=== PATIENT | male | born 1955 | race Caucasian/White ===

== ENCOUNTER → 2023-11-01 09:10 | Outpatient (REF) | payer MEDICARE, OTHER, SELFPAY | LOC: RAD 09:10 | PROVIDERS: ATTENDING PHYSICIAN Internal Medicine | DX: M85.80 Other specified disorders of bone density and structure, unspecified site (principal); M81.0 Age-related osteoporosis without current pathological fracture | CPT/HCPCS: 77080 ==

== ENCOUNTER 2024-01-03 06:24 | Day surgery (SDC) | payer MEDICARE, OTHER, SELFPAY | END 2024-01-03 10:47 | disposition home or self-care (01) | LOC: GI 06:24 | PROVIDERS: ATTENDING PHYSICIAN Internal Medicine | DX: Z12.11 Encounter for screening for malignant neoplasm of colon (principal); K64.8 Other hemorrhoids; K51.00 Ulcerative (chronic) pancolitis without complications; K64.4 Residual hemorrhoidal skin tags; D12.4 Benign neoplasm of descending colon | CPT/HCPCS: 45380; 88305 ==

== ENCOUNTER → 2024-01-16 07:06 | Outpatient (REF) | payer MEDICARE, OTHER, SELFPAY | LOC: RAD 07:06 | PROVIDERS: ATTENDING PHYSICIAN Internal Medicine | DX: E05.90 Thyrotoxicosis, unspecified without thyrotoxic crisis or storm (principal) | CPT/HCPCS: 78014; A9516 ==

== ENCOUNTER → 2024-01-20 10:09 | Outpatient (REF) | payer MEDICARE, OTHER, SELFPAY | LOC: RAD 10:09 | PROVIDERS: ATTENDING PHYSICIAN Internal Medicine | DX: E05.90 Thyrotoxicosis, unspecified without thyrotoxic crisis or storm (principal); E07.89 Other specified disorders of thyroid | CPT/HCPCS: 76536 ==

== ENCOUNTER 2024-05-06 06:24 | Day surgery (SDC) | payer MEDICARE, OTHER, SELFPAY | END 2024-05-06 09:43 | disposition home or self-care (01) | LOC: GI 06:24 | PROVIDERS: ATTENDING PHYSICIAN Internal Medicine | DX: Z12.11 Encounter for screening for malignant neoplasm of colon (principal); K63.89 Other specified diseases of intestine; K62.1 Rectal polyp; K51.00 Ulcerative (chronic) pancolitis without complications; K62.89 Other specified diseases of anus and rectum; Z90.79 Acquired absence of other genital organ(s); Z86.0100 Personal history of colon polyps, unspecified | CPT/HCPCS: 45385; 45380; 45399; 88305 ==

== ENCOUNTER 2024-09-27 17:24 | Emergency (ER) | payer MEDICARE, OTHER, SELFPAY ==
[2024-09-27 17:38] VITALS: BP 155/89
[2024-09-27 21:15] VITALS: BMI 29.0
--- NOTE | 2024-09-27 21:16 | EDRN ---
Pt complains of tightness in his chest - first episode little over 1 week ago. Second episode Saturday night and next episode started last night and has not gone away. Pt with chronic sob due to bronchiectasis, no worse than usual. No abd pain,
n/v/c/d, urinary symptoms, fever/chills/cough.
[2024-09-27 21:31] VITALS: BP 140/78
[2024-09-27 22:12] LABS: Hematocrit 43.5 % (39.0-52.0); Hemoglobin 15.0 g/dL (13.0-18.0); Mean Corp Hgb Conc. 34.5 g/dL (33.0-37.0); Mean Corpuscular Volume 86.1 fL (80.0-94.0); Nucleated Red Blood Cells % 0 % (-); Platelet Count 285 10^3/uL (130-400); Red Cell Dist. Width 13.5 % (11.5-14.5)
[2024-09-27 22:21] LABS: Blood Urea Nitrogen 21 mg/dl (9-20); Calcium 9.7 mg/dl (8.4-10.2); Carbon Dioxide 21 mmol/L (22-30); Chloride 109 mmol/L (98-107); Estimated Creatinine Clearance 106 ml/min; Glucose 88 mg/dl (70-99); Lipase 92 U/L (23-300); Sodium 138 mmol/L (135-145); eGFR > 60.00
[2024-09-27 22:38] LABS: ALT (SGPT) 32 U/L (0-50); AST (SGOT) 32 U/L (17-59); Albumin 4.7 g/dl (3.5-5.0); Alkaline Phosphatase 67 U/L (38-126); Potassium 3.8 mmol/L (3.5-5.1); Total Protein 7.3 g/dl (6.3-8.2)
[2024-09-27 22:41] LABS: Troponin I < 0.012 ng/ml
[2024-09-27 23:00] VITALS: BP 134/88
[2024-09-27 23:21] LABS: C-Reactive Protein 6.10 mg/L (0.0-10.00)
--- NOTE | 2024-09-27 23:58 | ED.GENMED ---
History of Present Illness
General
Chief Complaint: Chest Pain
Time Seen by Provider: 09/27/24 20:19
History of Present Illness
History of Present Illness:
Note:
CHIEF COMPLAINT(S)
Chest tightness and difficulty breathing.
HISTORY OF PRESENT ILLNESS
The patient is a 69-year-old male with a history of bronchiectasis, presenting with a complaint of persistent chest tightness and difficulty breathing, which initially began last Saturday. The patient describes the chest tightness as 'tender'
and sometimes localized. The symptoms improved but returned persistently since last night. The patients symptom severity fluctuates but reports it never completely resolved, noting this episode is more severe than previous ones. Associated symptoms
include an increased heart rate that the patient monitors closely, indicating variations in heart rate during rest and physical activity, such as cycling 22 miles, where it failed to escalate beyond 150 bpm. The patient is not new to these symptoms
but sought medical attention today as the pain persisted. The patient has a heart monitor, indicating heightened awareness and self-monitoring of cardiac status. The patient has been able to carry out activities such as cycling despite these
symptoms.
PAST MEDICAL AND SURGICAL HISTORY
Prostate cancer, reportedly in remission post-radiation in 2019. Ulcerative colitis, also in remission, currently managed with Entyvio.
CHRONIC MEDICAL CONDITIONS SIGNIFICANTLY AFFECTING CARE
Bronchiectasis and ulcerative colitis.
MEDICATIONS
The patient takes Entyvio for ulcerative colitis and previously was prescribed prednisone 20 mg daily for bronchiectasis exacerbations. The patient experienced adverse effects when inadvertently using a 30 mg dose.
PHYSICAL EXAM
General: Alert, no acute distress.
Skin: Warm, dry.
Head: Normocephalic, atraumatic.
Neck: Supple, trachea midline.
Eye Ears, nose, mouth and throat: Oral mucosa moist.
Cardiovascular: Normal peripheral perfusion, No edema.
Respiratory: Respirations are non-labored.
Gastrointestinal: Abdomen nondistended.
Back: Normal range of motion, Normal alignment.
Musculoskeletal: Normal range of motion, normal strength.
Neurological: Alert and oriented to person, place, time, and situation, No focal neurological deficit observed.
Psychiatric: Cooperative, appropriate mood & affect.
PLAN
1. The attending provider plans to order a computed tomography (CT) scan of the chest to rule out pulmonary embolism and assess bronchiectasis.
2. Review of cardiac enzymes indicated initial findings were unremarkable. The review of further blood work was planned.
3. The provider will coordinate with the patient�s family physician, Dr. Gill Hernandes, for follow-up and management.
4. The patient is instructed to continue monitoring symptoms and heart rate closely; further instructions will be provided based on diagnostic outcomes.
DIFFERENTIAL DIAGNOSIS
The Differential Diagnosis includes, in no particular order and is not limited to:
1. Pulmonary embolism
2. Angina pectoris
3. Myocardial infarction
4. Congestive heart failure
5. Pneumonia
6. Chronic obstructive pulmonary disease exacerbation
7. Anxiety disorder
8. Gastroesophageal reflux disease
9. Costochondritis
10. Aortic stenosis
Disposition:
SUMMARY OF ENCOUNTER
The 69-year-old male patient with a history of bronchiectasis presented to the emergency department with complaints of chest tightness and difficulty breathing. The patient has been followed by pulmonology. A CT scan of the chest was conducted to
rule out pulmonary embolism and revealed no acute pulmonary embolism, no thoracic aneurysm, or acute aortic dissection, confirming basilar atelectasis. Laboratory workup including negative troponin levels, BUN of 21, creatinine of 0.6, lipase of 92,
proBNP of 20, and CRP of 6.1 were noted. An EKG on arrival showed normal sinus rhythm at a rate of 90 with normal intervals and no signs of acute ischemia.
DISPOSITION
The patient was discharged in improved condition.
ASSESSMENT
The patient presented with symptoms of chest tightness and difficulty breathing, which were evaluated to rule out serious conditions such as pulmonary embolism and acute aortic dissection.
PLAN
1. The patient is discharged in improved condition.
2. Coordination with the patients primary care physician and automotive project engineer for ongoing management of bronchiectasis and monitoring of symptoms.
INDEPENDENT REVIEW OF LABS AND INTERPRETATION OF TESTS
My independent review of the CT scan of the chest shows no acute pulmonary embolism, no thoracic aneurysm, or acute aortic dissection; findings are consistent with basilar atelectasis.
My independent review of lab results includes:
- Troponin: Negative
- BUN
21
- Creatinine: 0.6
- Lipase: 92
- proBNP: 20
- CRP
6.1
My independent interpretation of the EKG shows a normal sinus rhythm with a rate of 90, normal intervals, and no acute ischemic changes.
MEDICATION RECONCILIATION
The patient confirmed to have prescriptions ready, although specific medications were not detailed in the transcript.
MEDICAL DECISION MAKING
- Number and Complexity of Problems Addressed:
Chronic conditions affecting care include bronchiectasis and ulcerative colitis.
Differential Diagnosis considered:
1. Pulmonary embolism
2. Angina pectoris
3. Myocardial infarction
4. Congestive heart failure
5. Pneumonia
6. Chronic obstructive pulmonary disease exacerbation
7. Anxiety disorder
8. Gastroesophageal reflux disease
9. Costochondritis
10. Aortic stenosis
- Data:
Category 1:
The CT scan was conducted and independently interpreted with findings consistent with basilar atelectasis.
Laboratory tests independently reviewed indicated negative troponin, BUN of 21, creatinine of 0.6, lipase of 92, proBNP of 20, and CRP of 6.1.
- Risk:
Consideration of Admission/Observation: Escalation of care including admission/observation was considered given the complexity and risk of the patients presenting complaint, exam findings, and their underlying comorbidities. However, ultimately I
feel the patient is safe for outpatient management with close follow-up. Reasoning: Work-up is reassuring, does not reveal any acute life/organ-threatening processes, patients symptoms well controlled upon reevaluation, reexamination is reassuring,
vitals are stable, patient agreeable with discharge, reliable for follow-up.
DIAGNOSIS
1. Chest tightness and difficulty breathing - ICD-10: R07.89
2. History of bronchiectasis - ICD-10: J47.9
Past History
Past History
ED Past Medical History: Cancer (Prostate) and Other (Bronchiectasis, BPH, kidney stone)
ED Past Surgical History: Other (Sinus surgery)
Social History
Tobacco: Non-smoker
Alcohol: None
Drug: None
Personal:
Living: with family
Employment: Employed
Family History
Family History: Other
Phy Exam
Physical Exam
Physical Exam:
Physical Exam
Vital signs and allergy list reviewed and agreed with.
GENERAL: Alert , in minimal apparent distress
EYE: pupils equal, EOMI, anicteric
NECK: Supple, no significant adenopathy. No masses. Trachea midline
ENT: Oropharynx is clear, mmm.
CARDIAC: Regular rate and rhythm . No M/R/G
LUNGS: Clear breath sounds bilaterally, no acute respiratory distress, no wheezes/rales/rhonchi. Some expiratory wheezes
ABDOMEN: Soft, without focal tenderness, no r/g, no cvat. Normal BSx4q
NEUROLOGICAL: Alert and oriented, no focal neuro deficits
SKIN: Warm and dry, skin intact.
MUSCULOSKELETAL: No edema, well perfused. Moves all 4 extremities
PSYCH: Normal and appropriate interaction.
Scores
Heart Score for Chest Pain Patients
STEMI patient?: No
History: Slightly or Non-Suspicious
ECG: Normal
Age: >/= 65 years
Risk Factors: 1 or 2 Risk Factors
Troponin: </= Normal Limit
Heart Score for Chest Pain Patients: 3
Heart Score Risk: 2.5% MACE over next 6 weeks
Course
Orders/Labs/Results
Orders:
Orders
09/27/24 17:30
Electrocardiogram (*1) Urgent
Reason for Study: Chest Pain
EKG- Treatment ONCE
09/27/24 21:14
CT Chest PE Study Urgent
Comment:
Reason For Exam: tachy, cp, hx of bronchiectasis
09/27/24 21:40
Basic Metabolic Panel Urgent
Lipase Urgent
09/27/24 21:56
CRP [C-Reactive Protein] Urgent
Complete Blood Count/With Diff Urgent
Erythrocyte Sed Rate Urgent
Comment: ADD ON
Zaswu-Yxpp-Vkndsmn Urgent
NT-proBNP Urgent
Comment: ADD ON
Potassium Urgent
Troponin I Urgent
09/28/24 00:02
Electrocardiogram (*1) Urgent
Reason for Study: Chest Pain
EKG- Treatment ONCE
Abnormal Lab Results
09/27/24
21:40
Chloride 109 H mmol/L
(98-107)
Carbon Dioxide 21 L mmol/L
(22-30)
BUN 21 H mg/dl
(9-20)
Creatinine 0.6 L mg/dL
(0.7-1.3)
09/27/24 21:56
09/27/24 21:56
Vital Signs
Initial and Last Documented VS:
Initial Vital Signs
Temp Pulse Resp BP Pulse Ox
98.4 F 109 18 155/89 99
09/27/24 17:38 09/27/24 17:38 09/27/24 17:38 09/27/24 17:38 09/27/24 17:38
Last Documented Vital Signs
Temp Pulse Resp BP Pulse Ox
98.4 F 86 14 119/85 99
09/27/24 17:38 09/28/24 00:41 09/28/24 00:41 09/28/24 00:41 09/28/24 00:41
*Pulse Oximetry
SaO2: 98
Oxygen Mode of Delivery: Room air
Patient hypoxic: no
*Critical Care Note
Total Time (30-74mins, 75-104mins- exclusive of procedures): Not Applicable
Update Note
Update Note:
NAME: UMA CHOWDHURY
DATE OF EXAM: 09/27/2024
Patient No: [id number]
Physician: MAGY^Enzo
Date of : 1955
Past Medical History (entered by Technologist):
Reason For Exam (entered by Technologist):
Other Notes (entered by Technologist): Pt reports chest tightness since 2099, also had an episode 1 wk ago and Sat night, but this episode has not resolved. Pt has a h/o bronchiectasis but feels a little more SOB than usual.
Prior sent
Additional Information (per Vision Radiologist):
CTA CHEST
IMPRESSION:
1. Adequate technical study. No acute pulmonary embolism.
2. No thoracic aortic aneurysm or acute aortic dissection. Bibasilar atelectasis
Incidentals:
- Calcified coronary atherosclerosis
- No acute osseous abnormality.
- Mild gastric wall thickening may be secondary to decompressed state.
- No thoracic lymphadenopathy or suspicious lymph nodes.
Case finalized on Sep 27 2024 11:43PM ET
Repeat EKG shows normal sinus rhythm rate 88 with normal intervals, normal axis. No evidence of acute ischemia present. When compared with previous there is no obvious interval change noted.
ED Attending Note
-
Portions of this chart may have been created with voice recognition software.� Occasional wrong word or��sound alike� substitutions may have occurred due to the inherent limitations of voice recognition software.
Discharge Plan
Departure
Patient Disposition: Home (Routine Discharge)
Date of Disposition: 09/28/24
Time of Disposition: 00:35
Patient with high blood pressure during this ER visit?: Yes
Condition: Good
Discharge Problem:
Bronchiectasis, Chest pain
Instructions: Bronchiectasis in adults, Chest Pain PCP Follow Up, BLOOD PRESSURE
Prescriptions:
No Action
theophylline 300 MG tablet extended release 12 hr
300 mg PO BID
tamsulosin 0.4 MG capsule
0.4 mg PO BID
noegshbhd-BRK-OK-acetaminophen 295 ML liquid
60 ml PO HSPRN PRN (Reason: cough)
Patient Comments:
'hydrocodone cough syrup' no dosage indicated on paper
folic acid 0.8 MG capsule
0.8 mg PO DAILY
cholecalciferol (vitamin D3) 2,000 UNITS tablet
4,000 units PO DAILY
multivitamin with folic acid [Tab-A-Margarita] 1 TABLET tablet
1 tab PO DAILY
Combivent Respimat 1 PUFF mist
1 puff inhalation Q4HPRN PRN (Reason: sob)
cyclobenzaprine 10 MG tablet
10 mg PO DAILYPRN PRN (Reason: muscle spasms)
ipratropium-albuterol 3 ML solution for nebulization
3 ml inhalation R BID
fluticasone propionate 1 SPRAY spray,suspension
2 spray intranasal BID
sodium chloride [Hyper-Eduardo] 4 ML solution for nebulization
4 ml inhalation R BID
arformoterol 15 mcg/2 mL Solution For Nebulization
2 ml INHALATION BID
Entyvio 300 mg Recon Soln
300 mg IV Q8W
polyethylene glycol 3350 [Miralax] 17 gram Powder In Packet
17 g PO DAILY
azithromycin [Zithromax] 250 mg Tablet
250 mg PO MOWEFR
Lunesta
2 tab PO HS
Patient Comments:
pt does not know mg
Dulera 100-5 mcg/actuation Hfa Aerosol Inhaler
2 puff INHALATION BID PRN (Reason: when not using neb)
mometasone [Nasonex] 50 mcg/actuation Bard,Non-Aerosol
2 spray INTRANASAL HS
Referrals:
[facility] [Provider Group]
UNKNOWN - PT DOES,NOT KNOW [Family Provider]
Activity Restrictions/Additional Instructions:
Thank You for choosing [facility].
It was a pleasure meeting you and taking part in your care. We hope for your continued healing and wellness.
Please read discharge instructions in their entirety. However, they are for general education and may not describe your exact diagnosis at discharge. Information on your ER visit and medical conditions were discussed with you along with appropriate
follow up information...
If indicated, please take your medications as instructed and indicated on discharge paperwork.
Please schedule a follow up appointment as directed. Call to schedule an appointment
Please return to the emergency department with ANY change in, persisting, or worsening of symptoms. If any of your symptoms do not improve, or persist, or become more severe within 6-12 hours, please return to the emergency department for further
care.
Please return to the emergency department if you develop a headache, neck pain/stiffness, fever greater than 100.4F, chest pain, shortness of breath, persistent nausea, vomiting, slurred speech, difficulty walking, numbness/tingling, weakness, signs
of infection or any other symptoms that are worrisome to you.
If you have any questions or concerns please do not hesitate to call the Hospital at or E-mail me directly at [email or web address]
Interventions
Interventions:
*Risk Screen - Suicide Last Done: 09/27/24 17:38
*General Assessment Last Done: 09/27/24 22:02
*Neglect/Abuse Screening Last Done: 09/27/24 17:38
*ED- Fall Risk Assessment Last Done: 09/27/24 22:02
*ED COVID-19 Vaccine History Last Done: 09/27/24 17:38
*Nursing Disposition Last Done: 09/28/24 00:50
ED- Cardiac Assessment Last Done: 09/27/24 22:02
Discharge Date and Time
Discharge Date/Time: 09/28/24 00:50
Print Language: CITIZEN OF [place]
[2024-09-28 00:41] VITALS: BP 119/85
== END 2024-09-28 00:50 | disposition home or self-care (01) ==
LOC: EMR 17:24
PROVIDERS: Emergency Medicine; EMERGENCY PHYSICIAN Student in an Organized Health Care Education/Training Program
DX: J47.9 Bronchiectasis, uncomplicated (principal); I25.10 Atherosclerotic heart disease of native coronary artery without angina pectoris; N40.0 Benign prostatic hyperplasia without lower urinary tract symptoms; K51.90 Ulcerative colitis, unspecified, without complications; Z85.46 Personal history of malignant neoplasm of prostate; Z92.3 Personal history of irradiation
CPT/HCPCS: 99284; 71275; 80048; 80076; 83690; 83880; 84132; 84484; 85025; 85652; 86140; 93005; Q9967

== ENCOUNTER → 2024-10-07 11:57 | Outpatient (REF) | payer MEDICARE, OTHER, SELFPAY | LOC: HWRAD 11:57 | PROVIDERS: ATTENDING PHYSICIAN Nurse Practitioner Family; FAMILY PHYSICIAN Internal Medicine; REFERRING PHYSICIAN Internal Medicine Pulmonary Disease | DX: J47.9 Bronchiectasis, uncomplicated (principal) | CPT/HCPCS: 71250 ==

== ENCOUNTER 2024-10-16 22:29 | Inpatient (IN) | payer MEDICARE, OTHER, SELFPAY ==
[2024-10-16] VITALS (7 sets, daily range): BP systolic 105–144; BP diastolic 80–100; BMI 29.8
[2024-10-16 19:08] LABS: Hematocrit 43.4 % (39.0-52.0); Hemoglobin 15.4 g/dL (13.0-18.0); Mean Corp Hgb Conc. 35.5 g/dL (33.0-37.0); Mean Corpuscular Volume 83.8 fL (80.0-94.0); Nucleated Red Blood Cells % 0 % (-); Platelet Count 255 10^3/uL (130-400); Red Cell Dist. Width 13.2 % (11.5-14.5)
[2024-10-16 19:17] LABS: ALT (SGPT) 36 U/L (0-50); AST (SGOT) 37 U/L (17-59); Albumin 4.7 g/dl (3.5-5.0); Alkaline Phosphatase 63 U/L (38-126); Blood Urea Nitrogen 29 mg/dl (9-20); Calcium 10.6 mg/dl (8.4-10.2); Carbon Dioxide 23 mmol/L (22-30); Chloride 109 mmol/L (98-107); Glucose 114 mg/dl (70-99); Potassium 3.8 mmol/L (3.5-5.1); Sodium 141 mmol/L (135-145); Total Protein 7.1 g/dl (6.3-8.2); eGFR > 60.00
[2024-10-16 19:28] LABS: Troponin I 0.016 ng/ml
[2024-10-16] MEDS: NITROSTAT (SUBLINGUAL) 0.4 MG SL ×3 (20:43→21:30)
--- NOTE | 2024-10-16 20:48 | ED.GENMED ---
History of Present Illness
General
Chief Complaint: Chest Pain
Source: patient
Time Seen by Provider: 10/16/24 20:19
History of Present Illness
History of Present Illness:
69-year-old male with past medical history of bronchiectasis, previous prostate cancer presenting to the emergency department for evaluation of continued chest pain for which she was also seen here in the ER 2 weeks ago with no exact etiology
identified. Patient states the pain has been waxing and waning, today pain was occurring while he was riding his bike on a 27 mile an hour bike ride, notes today it seemed a little bit more intense, radiating across his chest described to be a
tightness sensation. Patient states he does ride his bike fairly regularly without any other complications. He does note abnormal heart rates during this time noting that his heart rate has been mostly elevated although there were a few episodes
where he did have a slower heart. He denies any recent illnesses, fevers, chills, rigors, abdominal pain, nausea or vomiting. Patient has a chronic cough which is secondary to his known bronchiectasis. Based off of record review patient was seen
here 2 weeks ago, had a CTA of his chest which was negative for PE but did show diffuse CAD
Past History
Past History
ED Past Medical History: Cancer (Prostate) and Other (Bronchiectasis, BPH, kidney stone)
ED Past Surgical History: Orthopedic and Other (Sinus surgery)
Social History
Tobacco: Non-smoker
Alcohol: None
Drug: None
Personal:
Living: with family
Employment: Employed
Family History
Family History: Other
Review of Systems
Review of Systems
All Other Systems: ROS reviewed and negative except as documented in HPI and ROS
Phy Exam
Physical Exam
Physical Exam:
GENERAL: Alert , in no apparent distress
HEAD: Normocephalic atraumatic
EYE: conjunctiva clear
NECK: Supple
ENT: o/p clr, mmm.
CARDIAC: Tachycardic rate, regular rhythm, no murmur
LUNGS: Clear breath sounds bilaterally, no acute respiratory distress, no wheezes/rales/rhonchi
NEUROLOGICAL: Alert and oriented
SKIN: Warm and dry, skin intact.
MUSCULOSKELETAL: well perfused.
PSYCH: Normal and appropriate interaction.
Scores
Heart Failure Risk
Heart Failure Risk Score: Not Applicable
Heart Score for Chest Pain Patients
STEMI patient?: No
History: Moderately Suspicious
ECG: Nonspecific Repolarization
Age: >/= 65 years
Risk Factors: >/= 3 Risk Factors or History of CAD
Troponin: </= Normal Limit
Heart Score for Chest Pain Patients: 6
Heart Score Risk: 20.3% MACE over next 6 weeks
Withdrawal Assessment of Alcohol
Withdrawal Assessment Completed?: Not applicable
Course
Orders/Labs/Results
Orders:
Orders
10/16/24 18:41
Electrocardiogram (*1) Urgent
Reason for Study: Chest Pain
EKG- Treatment ONCE
10/16/24 18:55
CMP [Comprehensive Metabolic Panel] Urgent
Complete Blood Count/With Diff Urgent
Troponin I Urgent
10/16/24 20:41
Nitroglycerin Sublingual [Nitrostat (Sublingual)] 0.4 mg SL [id number] PRN
10/16/24 20:45
Aspirin Chewable [Low Strength Aspirin] 324 mg PO NOW STA
10/16/24 21:02
Heparin 4,000 units IV NOW STA
Nursing to Place Non Medication Order As Directed
Physician Order: PTT 6 hours after initial start of Heparin infusion
Above order entered?: Yes
10/16/24 21:15
Heparin 44467 Units/250 ml 25,000 units in 250 ml IV PER PROTOCOL
Weight to be used for heparin protocol in kilograms (kg):: 86.3
Protocol:: Cardiac Tx/Acute Coronary
PTT Goal Range to be used:: PTT 73 to 111 seconds
Order type:: Initial
INITIAL Infusion Dose (UNITS/KG/hr) & then follow protocol:: 12 units/kg/hr
Infusion Dose in UNITS/hr & then follow protocol (UNITS/hr):: 1,000
INFUSION RATE in mL/hr & then follow protocol (mL/hr):: 10
PTT less than or equal to 64 seconds:: Increase rate by 200 units/hr (+ 2 mL/hr)
PTT 64.1 to 72.9 seconds:: Increase rate by 100 units/hr (+ 1 mL/hr)
PTT 73 to 111 seconds:: Target Range. No change in rate.
PTT 111.1 to 130.9 seconds:: Decrease rate by 100 units/hr (- 1 mL/hr)
PTT 131 to 199.9 seconds:: HOLD for 1 hr. Then decrease rate by 200 units/hr (- 2 mL/hr)
PTT greater than or equal to 200 seconds:: HOLD for 2 hrs & Notify Provider. Then decrease by 200 units/hr (-
2 mL/hr)
Lab follow-up:: Each change, PTT q6h until 2 consecutive are therapeutic. Then PTT
daily.
10/16/24 21:29
PTT Urgent
Comment: Obtain baseline before beginning heparin infusion if not already collected
10/16/24 22:11
Admit/Transfer Patient As Directed
Co-Sign Provider:
Level of Care: Inpatient admission
Assign to:: Telemetry
Physician / Group: Rich
Diagnosis: Angina
Reason for Telemetry: Chest Pain syndromes
Date to Stop Telemetry: 10/18/24
Time to Stop Telemetry: 11:00
Reason for Hospitalization: heparin drip
Expected length of stay greater than two midnights?: Yes
ELOS- Estimated Length of Stay in days: 3
I certify the patient meets the requirements for IP care: Yes
PRN Pain Medication Management As Directed
May give lesser potent ordered pain med per pt: Yes
preference::
Protocol:: Medication orders for pain may be administered in a
manner that supports deferring to patient preference
when the pt is:
- Requesting an ordered lesser potent pain medication.
Least to most potent pain medications are defined
as: acetaminophen < NSAID < tramadol < opioids
(morphine, oxycodone, hydromorphone).
- Requesting a lesser dose of the same medication IF
ORDERED.
- Requesting a less intrusive route of administration
if both routes are prescribed by the provider (PO <
IV).
10/16/24 22:17
Code Status As Directed
Resuscitation Status: Full Code
10/16/24 22:20
Hydrocodone Bit/Homatropine [Hycodan Syrup] 5 ml PO NOW STA
10/16/24 23:00
Troponin I Q6H
10/17/24 03:30
PTT Urgent
10/17/24 05:00
Troponin I Q6H
10/18/24 11:00
DC Protocol for Telemetry ONCE
Abnormal Lab Results
10/16/24 10/16/24
18:55 21:29
WBC 11.8 H 10^3/uL
(4.8-10.8)
MPV 10.5 H fL
(7.4-10.4)
Absolute Neuts (auto) 9.2 H 10^3/uL
(1.4-6.5)
Absolute Monos (auto) 0.9 H 10^3/uL
(0.1-0.6)
Neutrophils % 77.8 H %
(42.2-75.2)
Lymphocytes % 13.7 L %
(20.5-51.1)
APTT 22.4 L Sec
(23.4-35.0)
Chloride 109 H mmol/L
(98-107)
BUN 29 H mg/dl
(9-20)
Glucose 114 H mg/dl
(70-99)
Calcium 10.6 H mg/dl
(8.4-10.2)
10/16/24 18:55
10/16/24 18:55
Vital Signs
Initial and Last Documented VS:
Initial Vital Signs
Temp Pulse Resp BP Pulse Ox
98.1 F 124 18 142/100 98
10/16/24 18:42 10/16/24 18:42 10/16/24 18:42 10/16/24 18:42 10/16/24 18:42
Last Documented Vital Signs
Temp Pulse Resp BP Pulse Ox
98.1 F 108 22 110/80 95
10/16/24 18:42 10/16/24 22:00 10/16/24 22:00 10/16/24 22:00 10/16/24 22:00
MDM/Problems Addressed
Differential Diagnosis Includes:
Stable angina
Unstable angina
NSTEMI
Concern for PE is minimal given negative CTA 2 weeks ago
Valvular dysfunction
Myocarditis
Pericarditis
Cardiomyopathy
Muscular chest wall pain
Cardiac Arrhythmia
MDM/Problems Addressed:
69-year-old male presenting to the emergency department for evaluation of intermittent chest pain over the last 2 weeks, seen in this ER 2 weeks ago with a relatively unremarkable emergent workup but his CTA did show diffuse CAD. Patient presents
tachycardic up to high as 124 bpm. Given his recent chest imaging will hold off on this at present time. Will treat symptoms with 324 mg of aspirin as well as sublingual nitroglycerin and reassess. Will consult with cardiology to help with
disposition planning
Chronic conditions affecting care: Other (Bronchiectasis)
*Pulse Oximetry
SaO2: 98
Patient hypoxic: no
*EKG
Heart Rate: 119
Rate: tachycardiac
Rhythm: sinus
[place]: normal axis
Ischemia: other (T wave inversions inferior leads)
*Water Quality Specialist Interpretation
Rate: tachycardiac
Heart Rate: 122
Rhythm: sinus
*Critical Care Note
Total Time (30-74mins, 75-104mins- exclusive of procedures): 30
comment:
Critical care statement: A total of 30 minutes of critical care time was provided for this patient. This includes management of unstable vital signs, evaluation of the patient at bedside, reviewing the patient's pertinent medical records, discussion
with consultants, review of old EKGs and review of pertinent medical records. This time with separate from time utilized to perform the aforementioned documented procedures
Patient Management
Discussion with other providers: Hospitalist and Medical Donation Professional
Escalation/DeEscalation of care consider admission/obs:
Case discussed with cardiology, given patients pain improved with SL nitro, they want heparin initiated. Nitro gtt if patient remains with chest pain. They will see in consult. Hospitalist team accepts for admission
ED Attending Note
-
Portions of this chart may have been created with voice recognition software.� Occasional wrong word or��sound alike� substitutions may have occurred due to the inherent limitations of voice recognition software.
Discharge Plan
Departure
Patient Disposition: Admit
Date of Disposition: 10/16/24
Time of Disposition: 21:11
Presentation/result/management discussed w/ accepting MD/DO: Hospitalist
Discharge Problem:
Angina pectoris
Prescriptions:
No Action
theophylline 300 MG tablet extended release 12 hr
300 mg PO BID
tamsulosin 0.4 MG capsule
0.4 mg PO BID
cholecalciferol (vitamin D3) 2,000 UNITS tablet
2,000 units PO DAILY
multivitamin with folic acid [Tab-A-Margarita] 1 TABLET tablet
1 tab PO DAILY
Combivent Respimat 1 PUFF mist
1 puff inhalation Q4HPRN PRN (Reason: sob)
cyclobenzaprine 10 MG tablet
10 mg PO DAILYPRN PRN (Reason: muscle spasms)
ipratropium-albuterol 3 ML solution for nebulization
3 ml inhalation R BID
fluticasone propionate 1 SPRAY spray,suspension
1 spray intranasal DAILY
arformoterol 15 mcg/2 mL Solution For Nebulization
2 ml INHALATION BID
Entyvio 300 mg Recon Soln
300 mg IV Q8W
polyethylene glycol 3350 [Miralax] 17 gram Powder In Packet
17 g PO BID
azithromycin [Zithromax] 250 mg Tablet
250 mg PO MOWEFR
Dulera 100-5 mcg/actuation Hfa Aerosol Inhaler
2 puff INHALATION BID PRN (Reason: when not using neb)
fexofenadine 180 mg Tablet
180 mg PO DAILY
budesonide 0.5 mg/2 mL Suspension For Nebulization
0.5 mg INHALATION BID
folic acid 1 mg Tablet
1 mg PO DAILY
eszopiclone [Lunesta] 2 mg Tablet
2 mg PO HS
sodium chloride 7 % Solution For Nebulization
4 ml INHALATION BID
lidocaine 5 % Ointment
1 applic TOPICAL BID PRN (Reason: Pain)
Yupelri 175 mcg/3 mL Solution For Nebulization
175 mcg INHALATION DAILY
fluticasone propionate 220 mcg/actuation HFA aerosol inhaler
2 puff INHALATION Q12H
hydrocodone-homatropine [Hycodan] 5-1.5 mg/5 mL (5 mL) Solution
5 ml PO DAILYPRN PRN (Reason: Cough)
Referrals:
Gill Gregorio MD [Family Provider, Internal Medicine]
Interventions
Interventions:
*Risk Screen - Suicide Last Done: 10/16/24 20:30
*General Assessment Last Done: 10/16/24 20:30
*Neglect/Abuse Screening Last Done: 10/16/24 20:30
*ED- Fall Risk Assessment Last Done: 10/16/24 20:30
*ED COVID-19 Vaccine History Last Done: 10/16/24 20:30
ED- Cardiac Assessment Last Done: 10/16/24 20:30
Discharge Date and Time
Print Language: VINCENTIAN
[2024-10-16] MEDS: LOW STRENGTH ASPIRIN 324 MG PO (20:49)
--- NOTE | 2024-10-16 21:23 | HPS.HSE ---
Addendum entered and electronically signed by Abdoul Villanueva DO 10/16/24 22:42:
Patient seen and examined independently. Agree with findings and plan as set forth by Brenna Rueda PA-C.
Patient is a 69y M with PMH significant for asthma / bronchiectasis and ulcerative colitis who presents to ED complaining of several weeks of intermittent chest discomfort. Patient notes that he went on a 27 mile bicycle ride today. He had
elevated heart rates that did not improve as usual with rest. He noted chest discomfort mostly in the L chest with exertion that seemed more severe than it had over the past several weeks.
Patient denies any associated symptoms such as N/V, diaphoresis, etc.
Ass:
Chest Pain
Asthma / Bronchiectasis
Ulcerative Colitis
Plan:
Admit for further evaluation and treatment.
IV heparin infusion started in the ED per Cardiology recommendation.
Cardiology consulted for additional recommendations / possible ischemic evaluation.
Follow for any new / recurrent pain.
NTG PRN. Daily ASA, etc.
Follow serial troponin to peak.
Continue usual inhaled medication regimen - patient to bring non-formulary items from home for use during stay.
Original Note:
Family Physician
-
Family Physician: Gill Gregorio
Chief Complaint
-
Chest Pain
History of Present Illness
Patient is a 69 y/o male past medical history of bronchiectasis, and ulcerative colitis who presents with chest pain. Patient reports intermittent chest pain over the past few weeks. He was seen here at the [facility] emergency department
for chest pain on September 25 at which time his troponin was negative and he had a chest CT that was negative for pulmonary embolism and he was discharged home. Patient reports today during his 27 mile bike ride chest pain became more intense. He
described the pain as an intense tightness on the left side of his chest. He also reports during his ride his heart rate was higher than normal and did not recover as quickly. He reports chronic shortness of breath which overall is stable.
Medical History
Past Medical History
Past Medical History: Reports Other
Additional Past Medical History:
Bronchiectasis
Ulcerative Colitis
Prostate Cancer s/p Radiation
Past Surgical History: Reports Other
Additional Past Surgical History:
Knee Surgeries
Hernia Repair
Carpal Tunnel
Pilonidal Cyst
Bilateral Rotator Cuff
Sinus Surgery
Social History
Tobacco: Former Smoker (Quit many years ago)
Alcohol: Occasional (3-5 times per week)
Family History
Family History: Not pertinent
Allergies / Home Medications
Allergies reflects when Allergies were last updated in [employer].
Home Medications with original date entered in [employer]
Allergy/Medication List:
Allergies
Allergy/AdvReac Type Severity Reaction Status Date / Time
cephalexin Allergy Hives Verified 09/27/24 17:44
cat gut sutures Allergy incision Uncoded 09/27/24 17:44
splits open
chromic sutures Allergy incision Uncoded 09/27/24 17:44
splits open
pollen, molds, cats Allergy hay fever Uncoded 09/27/24 17:44
symptoms
Home Medications
cholecalciferol (vitamin D3) 50 mcg (2,000 unit) tablet 2,000 units PO DAILY Supplement 12/04/15
ipratropium 20 mcg-albuterol 100 mcg/actuation mist for inhalation (Combivent Respimat) 1 puff inhalation Q4HPRN PRN sob 12/04/15
multivitamin with folic acid 400 mcg tablet (Tab-A-Margarita) 1 tab PO DAILY Supplement 12/04/15
tamsulosin 0.4 mg capsule 0.4 mg PO BID Urinary issue 12/04/15
theophylline 300 mg tablet,extended release,12 hr 300 mg PO BID Lung/breathing issues 12/04/15
cyclobenzaprine 10 mg tablet 10 mg PO DAILYPRN PRN muscle spasms 12/24/19
fluticasone propionate 50 mcg/actuation nasal spray,suspension 1 spray intranasal DAILY Allergies 12/24/19
ipratropium 0.5 mg-albuterol 3 mg (2.5 mg base)/3 mL nebulization soln 3 ml inhalation R BID Lung/breathing issues 12/24/19
arformoterol 15 mcg/2 mL solution for nebulization 2 ml inhalation BID 12/19/22
vedolizumab 300 mg intravenous solution (Entyvio) 300 mg IV Q8W 12/19/22
azithromycin 250 mg tablet (Zithromax) 250 mg PO MOWEFR 09/27/24
mometasone-formoterol HFA 100 mcg-5 mcg/actuation aerosol inhaler (Dulera) 2 puff inhalation BID PRN when not using neb 09/27/24
polyethylene glycol 3350 17 gram oral powder packet (Miralax) 17 g PO BID 09/27/24
budesonide 0.5 mg/2 mL suspension for nebulization 0.5 mg inhalation BID 10/16/24
eszopiclone 2 mg tablet (Lunesta) 2 mg PO HS 10/16/24
fexofenadine 180 mg tablet 180 mg PO DAILY 10/16/24
fluticasone propionate 220 mcg/actuation HFA aerosol inhaler 2 puff inhalation Q12H 10/16/24
folic acid 1 mg tablet 1 mg PO DAILY 10/16/24
hydrocodone-homatropine 5 mg-1.5 mg/5 mL (5 mL) oral solution (Hycodan) 5 ml PO DAILYPRN PRN Cough 10/16/24
lidocaine 5 % topical ointment 1 applic topical BID PRN Pain 10/16/24
revefenacin 175 mcg/3 mL solution for nebulization (Yupelri) 175 mcg inhalation DAILY 10/16/24
sodium chloride 7 % for nebulization 4 ml inhalation BID 10/16/24
Review of Systems
-
A 12 point ROS was completed and negative except as noted: Yes
Constitutional: Denies Fever
Respiratory: Reports Cough (Chronic) and Trouble Breathing (Chronic)
Cardiac: Reports See HPI
Physical Exam
Vital Signs
Vital Signs
Temp Pulse Resp BP Pulse Ox
98.1 F 126 30 144/99 96
10/16/24 18:42 10/16/24 20:50 10/16/24 20:50 10/16/24 20:57 10/16/24 20:53
Physical Exam
General: Comfortable and Conversant
HEENT: Anicteric and Moist mucous membranes
Respiratory: Clear and Non Labored Respirations
Cardiac: S1/S2, Regular Rhythm and Tachycardia
GI: Soft and Non Tender
Musculoskeletal: No Clubbing and No Cyanosis
Skin: Warm and Dry
Neuro: Awake, Alert, Oriented and Nonfocal/grossly intact
Psych: Calm
Laboratory Results
-
10/16/24 18:55
10/16/24 18:55
Laboratory Results
Total Bilirubin 0.6 mg/dl (0.2-1.3) 10/16/24 18:55
AST 37 U/L (17-59) 10/16/24 18:55
ALT 36 U/L (0-50) 10/16/24 18:55
Alkaline Phosphatase 63 U/L (38-126) 10/16/24 18:55
Troponin I 0.016 ng/ml 10/16/24 18:55
Data Reviewed
-
Lab Data: Labs Reviewed by me
Impression/Plan
-
Chest Pain / Unstable Angina
-Consult Cardiology
-Continue heparin drip
-Continue aspirin
-Continue nitro SL PRN
-Trend Troponin
-Check Lipid Panel and HgbA1c
Bronchiectasis / Asthma
-Continue home nebulizer regimen
-Continue theophylline
Ulcerative Colitis
-Patient maintained on Entyvio as outpatient
Prostate Cancer s/p Radiation
-Continue tamsulosin
DVT proph: Heparin drip
Code Status: Full Code
[2024-10-16] MEDS: HEPARIN 4000 UNITS IV (21:35)
[2024-10-16] MEDS: HEPARIN 25000 UNITS/250 ML IV (21:37)
[2024-10-16 21:56] LABS: APTT 22.4 Sec (23.4-35.0)
[2024-10-16] MEDS: HYCODAN SYRUP 5 ML PO (22:39)
[2024-10-16 23:33] LABS: Troponin I 0.023 ng/ml
[2024-10-16] MEDS: ZITHROMAX PO (23:50)
[2024-10-17] VITALS (7 sets, daily range): BP systolic 118–155; BP diastolic 70–97; BMI 28.9
--- NOTE | 2024-10-17 01:20 | PTCARENOTE ---
recieved pt from ED. Pt ambulated from stretcher to bed. no c/o pain VSSS, pt oriented to unit and call [place] with reach pt care ongoing
[2024-10-17 03:58] LABS: APTT 60.7 Sec (23.4-35.0)
[2024-10-17] MEDS: NON-FORMULARY ITEM 2 ML INH ×2 (07:45→20:01)
[2024-10-17] MEDS: NON-FORMULARY ITEM 175 MCG INH (07:45)
[2024-10-17] MEDS: PULMICORT 0.5 MG INH ×2 (07:49→20:02)
[2024-10-17] MEDS: DUONEB 3 ML INH ×2 (07:49→20:02)
[2024-10-17 08:14] LABS: Hematocrit 39.2 % (39.0-52.0); Hemoglobin 14.0 g/dL (13.0-18.0); Mean Corp Hgb Conc. 35.7 g/dL (33.0-37.0); Mean Corpuscular Volume 85.2 fL (80.0-94.0); Platelet Count 242 10^3/uL (130-400); Red Cell Dist. Width 13.2 % (11.5-14.5)
--- NOTE | 2024-10-17 08:30 | CON.CAR ---
Addendum entered and electronically signed by Georgi Guzman MD 10/17/24 12:04:
I saw and evaluated the patient, and I provided the substantive portion of the medical decision making.
I reviewed and agree with the note by Francine Schulte and it accurately reflects our care.
I personally performed the medical decision making of the this encounter and my assessment and plan is below:
69-year-old gentleman with a past medical history of bronchiectasis/asthma followed by Dr. Perdue, ulcerative colitis, presented for evaluation of chest pain. This began while on his typical 27 mile bike ride yesterday. He could not really
describe it other than saying it is on the left side and felt as though he should seek care. It did not resolve until he received multiple nitroglycerin in the ED. Of note, he has multiple complaints of varying types of chest pain and shortness of
breath over the last 2 weeks and was seen in the emergency room 2 weeks ago at which point he had a relatively normal CTA. Troponin at that time was normal. He gets bouts of short chest pain and shortness of breath at rest that are always improved
with exertion, but yesterday his chest pain was different. Currently he is feeling improved.
On exam, he has a regular rate and rhythm with a normal S1-S2 no murmur rubs or gallops were appreciated lungs had diffuse expiratory wheezing (chronic). No lower extremity edema.
Labs concerning for troponin of 0.016 then 0.023 then 0.013. Admission EKG showed sinus tachycardia with T wave inversion inferiorly.
Impression:
Chest pain: Concerning for unstable angina given slightly abnormal troponin and description. It only resolved after nitroglycerin. Will treat with aspirin, heparin and statin. Will arrange for cardiac catheterization on Saturday or sooner should it
become clinically necessary. Keep n.p.o. after midnight tomorrow. Will start ARTHUR inhibitor and hold off on beta-ernie given wheezes. Check echo
Hypertension: Has been higher at home he reports, will start low-dose ARTHUR inhibitor.
Bronchiectasis/asthma, chronic: Unclear if this is contributing to symptoms. Make explain some but not all. Care per medicine.
Shortness of breath: Intermittent at times mostly at rest he does have an associated throat burning would recommend PPI trial.
Will follow.
Original Note:
Consultation
Consultation Request
Date/Time Consultation Requested: 10/16/24 10:50p
Date/Time Consultation Performed: 10/17/24 8:30a
Requesting Provider: Brenna Rueda PA-C
Performing Provider: HANH Barclay for Dr. Guzman
Reason for Consultation: chest pain
Medical History
-
Chief Complaint: chest pain
History of Present Illness:
Mr. Powell is a 69 yo male with bronchiectasis/asthma since [address] Perdue, ulcerative colitis followed by Dr. Wood, and prior prostate cancer, who presents to the ER with c/o chest pain while riding his bike. Admits to intermittent
chest pain for a couple weeks, this was worse. Initial troponin 0.016, then 0.023, EKG showed sinus tachycardia 119 bpm, T wave abnormality inferior. He was admitted to the hospitalist service and started on IV Heparin drip. NTG given in the ER
with improvement of pain. Currently denies chest pain.
Past Medical History
Past Medical History: Other (as above)
Past Surgical History: Orthopedic (b/l knees, right rotator cuff), Urological (left ureteroscopy/laser litho and stent 12/2019) and Other (left cataract, SCC left calf)
Social History
Tobacco: Former Smoker
Alcohol: Occasional
Personal:
Living: With Family
Family History
Family History: Reviewed & Not Pertinent
Allergies / Home Medications
Allergy/AdvReac Type Severity Reaction Status Date / Time
cephalexin Allergy Hives Verified 09/27/24 17:44
cat gut sutures Allergy incision Uncoded 09/27/24 17:44
splits open
chromic sutures Allergy incision Uncoded 09/27/24 17:44
splits open
pollen, molds, cats Allergy hay fever Uncoded 09/27/24 17:44
symptoms
�Medication �Instructions �Recorded �Confirmed �Type
cholecalciferol (vitamin D3) 50 2,000 units PO DAILY Supplement 12/04/15 10/16/24 History
mcg (2,000 unit) tablet
ipratropium 20 mcg-albuterol 100 1 puff inhalation Q4HPRN PRN sob 12/04/15 10/16/24 History
mcg/actuation mist for inhalation
(Combivent Respimat)
multivitamin with folic acid 400 1 tab PO DAILY Supplement 12/04/15 10/16/24 History
mcg tablet (Tab-A-Margarita)
tamsulosin 0.4 mg capsule 0.4 mg PO BID Urinary issue 12/04/15 10/16/24 History
theophylline 300 mg 300 mg PO BID Lung/breathing issues 12/04/15 10/16/24 History
tablet,extended release,12 hr
cyclobenzaprine 10 mg tablet 10 mg PO DAILYPRN PRN muscle spasms 12/24/19 10/16/24 History
fluticasone propionate 50 1 spray intranasal DAILY Allergies 12/24/19 10/16/24 History
mcg/actuation nasal
spray,suspension
ipratropium 0.5 mg-albuterol 3 mg 3 ml inhalation R BID 12/24/19 10/16/24 History
(2.5 mg base)/3 mL nebulization Lung/breathing issues
soln
arformoterol 15 mcg/2 mL solution 2 ml inhalation BID 12/19/22 10/16/24 History
for nebulization
vedolizumab 300 mg intravenous 300 mg IV Q8W 12/19/22 10/16/24 History
solution (Entyvio)
azithromycin 250 mg tablet 250 mg PO MOWEFR 09/27/24 10/16/24 History
(Zithromax)
mometasone-formoterol HFA 100 2 puff inhalation BID PRN when not 09/27/24 10/16/24 History
mcg-5 mcg/actuation aerosol using neb
inhaler (Dulera)
polyethylene glycol 3350 17 gram 17 g PO BID 09/27/24 10/16/24 History
oral powder packet (Miralax)
budesonide 0.5 mg/2 mL suspension 0.5 mg inhalation BID 10/16/24 10/16/24 History
for nebulization
eszopiclone 2 mg tablet (Lunesta) 2 mg PO HS 10/16/24 10/16/24 History
fexofenadine 180 mg tablet 180 mg PO DAILY 10/16/24 10/16/24 History
fluticasone propionate 220 2 puff inhalation Q12H 10/16/24 10/16/24 History
mcg/actuation HFA aerosol inhaler
folic acid 1 mg tablet 1 mg PO DAILY 10/16/24 10/16/24 History
hydrocodone-homatropine 5 mg-1.5 5 ml PO DAILYPRN PRN Cough 10/16/24 10/16/24 History
mg/5 mL (5 mL) oral solution
(Hycodan)
lidocaine 5 % topical ointment 1 applic topical BID PRN Pain 10/16/24 10/16/24 History
revefenacin 175 mcg/3 mL solution 175 mcg inhalation DAILY 10/16/24 10/16/24 History
for nebulization (Yupelri)
sodium chloride 7 % for 4 ml inhalation BID 10/16/24 10/16/24 History
nebulization
Verrustat 1 ml topical 1XD warts 10/17/24 10/17/24 History
fluorouracil 0.5 % topical cream 1 applic topical DAILY 10/17/24 10/17/24 History
Review of Systems
-
History Source: Patient
All other systems: Negative unless noted
Physical Exam
Vital Signs
Temp Pulse Resp BP Pulse Ox
97.9 F 88 16 155/83 97
10/17/24 07:50 10/17/24 07:50 10/17/24 07:50 10/17/24 07:50 10/17/24 07:50
Lab Results
10/17/24 06:47
Troponin I 0.023 ng/ml D 10/16/24 22:36
Impression / Plan
-
ACS - intermittent chest pain for 2 weeks, now worse while riding his bike.
- trend troponin to peak, 0.016, 0.023.
- EKG with abn T wave inferior, ST 119 bpm, check EKG now with improved rates.
- IV Heparin, ASA 81mg daily.
- check lipids today. (07/2023 LDL 151, TC 222, TG 72, HDL 58, ASCVD 10 yr risk 14.1%).
- plan for [facility] Saturday10/19/24, NPO after midnight.
Sinus tachycardia - improved rates.
- check EKG in NSR.
Asthma/bronchiectasis - chronic.
- managed by Dr. Perdue as an outpatient.
Ulcerative colitis - stable on meds.
- managed by Dr. Wood as an outpatient.
Prostate cancer - s/p brachytherapy.
- continue Flomax.
Data Reviewed
-
EKG: Tracing Personally Visualized and interpreted (sinus tachycardia 119 bpm, T wave abnormality inferior.)
Medical Tests (Nuc Med, Echo etc): Report Reviewed by me (echo 07/2022: EF 70-75%, normal RV, no valve disease.)
Labs: Labs Reviewed by me
Old Records: Reviewed
[2024-10-17 08:42] LABS: Troponin I 0.013 ng/ml
[2024-10-17] MEDS: ASPIR LOW (ENTERIC COATED) 81 MG PO (08:47)
[2024-10-17] MEDS: THERAGRAN 1 TABLET PO (08:47)
[2024-10-17] MEDS: FLOMAX 0.4 MG PO ×2 (08:47→20:54)
[2024-10-17] MEDS: MIRALAX 17 GRAMS PO ×2 (08:47→20:52)
[2024-10-17] MEDS: FOLVITE 1 MG PO (08:47)
[2024-10-17] MEDS: CLARITIN 10 MG PO (08:47)
[2024-10-17 09:08] LABS: Blood Urea Nitrogen 19 mg/dl (9-20); Calcium 9.2 mg/dl (8.4-10.2); Carbon Dioxide 24 mmol/L (22-30); Chloride 108 mmol/L (98-107); Estimated Creatinine Clearance 106 ml/min; Glucose 94 mg/dl (70-99); HDL Cholesterol 66 mg/dl; LDL Cholesterol, Calculated 100 mg/dl; Potassium 3.7 mmol/L (3.5-5.1); Sodium 140 mmol/L (135-145); Very Low Density Lipoprotein 10 mg/dl (0-30); eGFR > 60.00
[2024-10-17] MEDS: THEO DUR 300 MG PO ×2 (09:13→20:54)
[2024-10-17 11:03] LABS: APTT 75.8 Sec (23.4-35.0)
[2024-10-17 12:12] LABS: Glycohemoglobin (HgbA1c) 5.9 % (4.0-5.6)
[2024-10-17] MEDS: PROTONIX 40 MG PO (12:16)
--- NOTE | 2024-10-17 14:26 | W.PN.HOSP.TC ---
Today's Communication/Plan
-
for [facility] on sat
start pantoprazole
heparin/anti-plt per cards
Assessment / Plan
Assessment / Plan
Chest Pain / Unstable Angina
- EKG reviewed and no ST segment changes
-Troponin follow-up set remains negative
-Currently on aspirin/heparin drip
-Cardiology evaluated and planning to do an heart catheterization on Saturday
-Possible reflux symptom aggravating compounding presentation. Trial of PPI
Bronchiectasis / Asthma
-No signs of flareup
-Continue home nebulizer regimen
-Continue theophylline
Ulcerative Colitis
-Patient maintained on Entyvio as outpatient
Prostate Cancer s/p Radiation
-Continue tamsulosin
Insomnia -on Ambien
DVT proph: Heparin drip
Code Status: Full Code
Total time spent : 55 mins
Discussed with cards
Anticipated Discharge: 24 - 48 hours
Subjective/Interval History
-
Date of Service: October 17, 2024
Denies of having any further chest pain
Has some reflux symptoms
No overt dyspnea
Objective Data
-
Labs:
Laboratory Results
10/17/24 10/17/24 10/17/24
03:27 06:47 10:37
WBC 6.8
Hgb 14.0
Hct 39.2
Plt Count 242
APTT 60.7 H 75.8 H
Sodium 140
Potassium 3.7
Chloride 108 H
Carbon Dioxide 24
BUN 19
Creatinine 0.6 L
Glucose 94
Calcium 9.2
10/17/24
16:30
WBC
Hgb
Hct
Plt Count
APTT Pending
Sodium
Potassium
Chloride
Carbon Dioxide
BUN
Creatinine
Glucose
Calcium
Vital Signs:
Vital Signs
Temp Pulse Resp BP Pulse Ox
97.8 F 98 16 150/85 96
10/17/24 11:04 10/17/24 11:04 10/17/24 11:04 10/17/24 11:04 10/17/24 11:04
Review of Systems
-
Respiratory: Reports No Symptoms
Cardiac: Reports No Symptoms
Abdomen/GI: Reports No Symptoms
Physical Exam
-
General: No Apparent Distress and Comfortable
HEENT: Negative Oxygen
Respiratory: Clear to Auscultation
Cardiac: Regular Rhythm and S1/S2; Negative Murmur or Rub
Musculoskeletal: No Edema
Neuro: Awake, Alert, Oriented, No Motor Deficits and Nonfocal/Grossly Intact
Psych: Calm
[2024-10-17 16:48] LABS: APTT 76.1 Sec (23.4-35.0)
[2024-10-17] MEDS: HYCODAN SYRUP 5 ML PO (17:03)
[2024-10-17] MEDS: HEPARIN 25000 UNITS/250 ML IV (19:21)
[2024-10-18] MEDS: FLEXERIL 10 MG PO (01:08)
[2024-10-18 02:45] VITALS: BP 147/87
[2024-10-18 05:54] LABS: Hematocrit 40.3 % (39.0-52.0); Hemoglobin 14.2 g/dL (13.0-18.0); Mean Corp Hgb Conc. 35.2 g/dL (33.0-37.0); Mean Corpuscular Volume 85.4 fL (80.0-94.0); Platelet Count 246 10^3/uL (130-400); Red Cell Dist. Width 13.2 % (11.5-14.5)
[2024-10-18 06:03] LABS: APTT 71.8 Sec (23.4-35.0)
[2024-10-18 06:23] LABS: Blood Urea Nitrogen 12 mg/dl (9-20); Calcium 9.5 mg/dl (8.4-10.2); Carbon Dioxide 24 mmol/L (22-30); Chloride 111 mmol/L (98-107); Estimated Creatinine Clearance 106 ml/min; Glucose 97 mg/dl (70-99); Potassium 3.9 mmol/L (3.5-5.1); Sodium 138 mmol/L (135-145); eGFR > 60.00
[2024-10-18] MEDS: NON-FORMULARY ITEM 175 MCG INH (07:28)
[2024-10-18] MEDS: PULMICORT 0.5 MG INH ×2 (07:28→20:44)
[2024-10-18] MEDS: NON-FORMULARY ITEM 2 ML INH ×2 (07:28→20:44)
[2024-10-18] MEDS: DUONEB 3 ML INH ×2 (07:28→20:44)
[2024-10-18 07:30] VITALS: BP 130/69
[2024-10-18] MEDS: THERAGRAN 1 TABLET PO (08:33)
[2024-10-18] MEDS: FLOMAX 0.4 MG PO ×2 (08:33→21:08)
[2024-10-18] MEDS: CLARITIN 10 MG PO (08:33)
[2024-10-18] MEDS: FOLVITE 1 MG PO (08:33)
[2024-10-18] MEDS: ASPIR LOW (ENTERIC COATED) 81 MG PO (08:33)
[2024-10-18] MEDS: THEO DUR 300 MG PO ×2 (08:33→21:08)
[2024-10-18] MEDS: MIRALAX 17 GRAMS PO ×2 (08:33→21:08)
[2024-10-18] MEDS: PROTONIX 40 MG PO (08:33)
--- NOTE | 2024-10-18 10:37 | W.PN.CD ---
Today's Communication / Plan
-
continue heparin gtt with intensive monitoring
npo p mn for cath in am
Impression / Plan
-
ACS - intermittent chest pain for 2 weeks, now worse while riding his bike c/f UA
- troponin to peak, 0.023.
- EKG with abn T wave inferior, ST 119 bpm, check EKG now with improved rates.
- IV Heparin, ASA 81mg daily.
-LDL is 100 will recommend statin pending results of [facility]
- plan for [facility] Saturday10/19/24, NPO after midnight.
CP/SOB: multiple differing descriptions
-given chronic intermittent steroid use and 'throat burning'
-trial ppi
Sinus tachycardia - improved rates.
-continue tele
Asthma/bronchiectasis - chronic.
- managed by Dr. Perdue as an outpatient.
Ulcerative colitis - stable on meds.
- managed by Dr. Wood as an outpatient.
Prostate cancer - s/p brachytherapy.
- continue Flomax.
Physical Exam
Vital Signs/Labs
Vital Signs
Temp Pulse Resp BP Pulse Ox
97.5 F 86 18 130/69 97
10/18/24 07:30 10/18/24 07:30 10/18/24 07:30 10/18/24 07:30 10/18/24 10:27
10/17/24 10/18/24 10/19/24
06:59 06:59 06:59
Actual Weight 184 lb 9.6 oz
10/18/24 05:40
10/18/24 05:40
APTT 71.8 Sec (23.4-35.0) H 10/18/24 05:40
Triglycerides 53 mg/dl (10-149) 10/17/24 06:47
LDL Cholesterol, Calc 100 mg/dl 10/17/24 06:47
VLDL Cholesterol, Calc 10 mg/dl (0-30) 10/17/24 06:47
HDL Cholesterol 66 mg/dl 10/17/24 06:47
LAB Results
10/16/24 10/16/24 10/17/24
18:55 22:36 06:47
Troponin I 0.016 0.023 D 0.013
Physical Exam
Constitutional: No acute distress
Cardiovascular: Rhythm & rate is regular, Pedal edema is absent, JVD pressure is normal, Systolic murmur absent and Diastolic murmur absent
Respiratory: Respiratory effort normal and Wheeze Present (Diffuse)
Neuro/Psych: AO x 3
Data Reviewed
-
Date of Service: October 18, 2024
EKG: Other (Limited telemetry sinus tach)
[2024-10-18 10:58] VITALS: BP 152/90
[2024-10-18 12:50] LABS: APTT 84.9 Sec (23.4-35.0)
--- NOTE | 2024-10-18 13:06 | W.PN.HOSP.TC ---
Today's Communication/Plan
-
restart home
AM labs time adjusted
npo past [place] for [facility] tomorrow
Assessment / Plan
Assessment / Plan
Chest Pain / Unstable Angina
-EKG reviewed and no ST segment changes
-Troponin peak 0.023
-Currently on aspirin/heparin drip
-Cardiology evaluated and planning to do an heart catheterization on Saturday
-Possible reflux symptom aggravating / compounding presentation. Trial of PPI
Bronchiectasis / Asthma
-No signs of flareup
-Continue home nebulizer regimen
-Continue theophylline
-Dr Perdue is primary loft worker head at [facility].
Ulcerative Colitis
-Patient maintained on Entyvio as outpatient
-Dr hayes is primary GI
Prostate Cancer s/p Radiation
-Continue tamsulosin
Insomnia - on , patient bringing home supply
DVT proph: Heparin drip
Code Status: Full Code
Patient seen frustrated/anxious over not able to get enough sleep overnight. Sleeping. Adjusted for patient to take his home medication. Morning labs time changed 7 in the morning. Patient requesting to come off on telemetry although in setting
of rule out of CAD will have to maintain. Discussed with cardiology.
Anticipated Discharge: 24 - 48 hours
Subjective/Interval History
-
Date of Service: October 18, 2024
anxious and frustrated over not able to have proper sleep last night
no chest pain
Objective Data
-
Labs:
Laboratory Results
10/18/24 10/18/24
05:40 12:31
WBC 6.2
Hgb 14.2
Hct 40.3
Plt Count 246
APTT 71.8 H 84.9 H
Sodium 138
Potassium 3.9
Chloride 111 H
Carbon Dioxide 24
BUN 12
Creatinine 0.6 L
Glucose 97
Calcium 9.5
Vital Signs:
Vital Signs
Temp Pulse Resp BP Pulse Ox
97.6 F 107 18 152/90 97
10/18/24 10:58 10/18/24 10:58 10/18/24 10:58 10/18/24 10:58 10/18/24 10:58
I&O
10/17/24 10/18/24 10/19/24
06:59 06:59 06:59
Intake Total 1020 / 1020
Balance 1020 / 1020
Review of Systems
-
Respiratory: Reports No Symptoms
Cardiac: Reports No Symptoms
Abdomen/GI: Reports No Symptoms
Physical Exam
-
General: Appears in Distress; Negative Pain
HEENT: Negative Oxygen
Neuro: Awake, Alert, Oriented and No Motor Deficits
Psych: Anxious
--- NOTE | 2024-10-18 13:52 | CM ---
CM reviewed chart. Presented from home w/intermittent CP x2wks, now worse while riding his bike
Pt Iw/amb and adls. Anticipate home with no needs at dc.
Cards following. Plan for [facility] Saturday10/19/24, NPO after midnight.
Should pts needs change please place a CM/SW consult.
CM/SW will continue to follow to ensure a safe and timely dc.
[2024-10-18 15:21] VITALS: BP 132/75
[2024-10-18] MEDS: HYCODAN SYRUP 5 ML PO (16:03)
[2024-10-18] MEDS: HEPARIN 25000 UNITS/250 ML IV (18:11)
[2024-10-18 18:55] LABS: APTT 89.4 Sec (23.4-35.0)
[2024-10-18 19:30] VITALS: BP 139/85
[2024-10-18] MEDS: NON-FORMULARY ITEM 1 UNIT PO (23:18)
[2024-10-18 23:35] VITALS: BP 127/81
[2024-10-19 03:16] VITALS: BP 131/83
[2024-10-19] MEDS: HYCODAN SYRUP 5 ML PO ×2 (06:35→18:20)
[2024-10-19 06:50] VITALS: BMI 28.7
[2024-10-19 07:38] VITALS: BP 134/81
[2024-10-19] MEDS: NON-FORMULARY ITEM 1 ML INH (08:08)
[2024-10-19] MEDS: NON-FORMULARY ITEM 1 MCG INH (08:09)
[2024-10-19] MEDS: PULMICORT 0.5 MG INH (08:09)
[2024-10-19] MEDS: DUONEB 3 ML INH (08:09)
[2024-10-19] MEDS: MIRALAX PO (08:11)
[2024-10-19] MEDS: ASPIR LOW (ENTERIC COATED) 81 MG PO (08:12)
[2024-10-19] MEDS: THERAGRAN 1 TABLET PO (08:12)
[2024-10-19] MEDS: THEO DUR 300 MG PO (08:12)
[2024-10-19] MEDS: FLOMAX 0.4 MG PO (08:12)
[2024-10-19] MEDS: PROTONIX 40 MG PO (08:13)
[2024-10-19] MEDS: FOLVITE 1 MG PO (08:13)
[2024-10-19] MEDS: CLARITIN 10 MG PO (08:13)
[2024-10-19] MEDS: ZITHROMAX 250 MG PO (08:16)
[2024-10-19 08:18] LABS: Blood Urea Nitrogen 12 mg/dl (9-20); Calcium 9.3 mg/dl (8.4-10.2); Carbon Dioxide 24 mmol/L (22-30); Chloride 109 mmol/L (98-107); Estimated Creatinine Clearance 106 ml/min; Glucose 102 mg/dl (70-99); Potassium 4.1 mmol/L (3.5-5.1); Sodium 138 mmol/L (135-145); eGFR > 60.00
[2024-10-19 08:26] LABS: APTT 123.0 Sec (23.4-35.0)
--- NOTE | 2024-10-19 08:41 | W.PN.CD ---
Today's Communication / Plan
-
Coronary angiography today.
Impression / Plan
-
Impression/Plan: 69 y/o male with bronchiectasis/asthma and ulcerative colitis admitted with suspected acute coronary syndrome (chest pain after routine 27 mile bicycle ride).
#ACS
-Acute. Intermittent chest pain for 2 weeks, now worse while riding his bike c/f UA.
-EKG with inferior T wave abnormalities. Troponin peaked at 0.023 (normal).
-Continue IV Heparin, ASA 81mg daily.
-Cardiac catheterization to clarify coronary anatomy.
#Asthma/bronchiectasis
-Chronic, stable.
-Managed by Dr. Perdue as an outpatient.
-Continue home arformoterol, azithromycin, albuterol/ipratropium, theophylline.
#Ulcerative colitis
-Chronic, stable on meds (vedolizumab).
-Managed by Dr. Wood as an outpatient.
#Prostate cancer
-Chronic, s/p brachytherapy.
-Continue tamsulosin.
Subjective/Interval History:
No acute events.
No subjective complaints.
DATA:
CT Chest, 10/07/2024:
IMPRESSION:
1. No significant bronchiectasis is appreciated on the current CT. There were tree-in-bud opacities and bronchiectasis seen on prior CT dated 06/13/2022, but not seen on the current study, which may have been related to prior infectious or
inflammatory disease.
2. No evidence of significant emphysema or interstitial fibrosis.
3. Mild coronary arterial calcification. Please correlate with symptoms of and risk factors for coronary artery disease, with further workup as clinically appropriate.
If the patient has emphysema, patient should be assessed for an annual low dose lung cancer CT program, as pulmonary emphysema is an independent risk factor for lung cancer.
Colonoscopy, 05/06/2024:
Impression:
- No concerning polyps found during exam and during chromoendoscopy examination.
- A surgically absent prostate found on digital rectal exam.
- Altered vascular and scarred mucosa in the entire examined colon consistent with longstanding ulcerative colitis, but no active inflammation. Biopsied throughout.
- One 3 mm polyp in the rectum, removed with a cold snare. Resected and retrieved.
- Chromoscopy was performed in the entire colon.
Physical Exam
Vital Signs/Labs
Vital Signs
Temp Pulse Resp BP Pulse Ox
36.4 C 93 18 134/81 97
10/19/24 07:38 10/19/24 08:14 10/19/24 08:14 10/19/24 07:38 10/19/24 08:14
10/17/24 10/18/24 10/19/24
11:59 11:59 11:59
Actual Weight 83.733 kg 83.149 kg
10/18/24 05:40
10/19/24 07:08
APTT 123.0 Sec (23.4-35.0) H 10/19/24 08:07
Triglycerides 53 mg/dl (10-149) 10/17/24 06:47
LDL Cholesterol, Calc 100 mg/dl 10/17/24 06:47
VLDL Cholesterol, Calc 10 mg/dl (0-30) 10/17/24 06:47
HDL Cholesterol 66 mg/dl 10/17/24 06:47
LAB Results
10/16/24 10/16/24 10/17/24
18:55 22:36 06:47
Troponin I 0.016 0.023 D 0.013
Physical Exam
Constitutional: No acute distress and Comfortable
EENT: Anicteric and Moist mucous membranes
Cardiovascular: Rhythm & rate is regular, Pedal edema is absent, JVD pressure is normal, S1S2 is normal and Murmur/rub/gallop absent
Respiratory: Respiratory effort normal, Lungs clear to auscul., Wheeze Absent, Crackles Absent and Rhonchi Absent
GI: Soft, Distention absent, Flat, Non tender and Normal bowel sounds
Neuro/Psych: AO x 3
Data Reviewed
-
Date of Service: October 19, 2024
Medical Decision Making: Reviewed Test Results, Independent Historian Assessment and Test Interpretation
EKG: Tracing Personally Visualized and interpreted and Report Reviewed by me
X-Ray/CT/US/MRI/NUC/PET: Image Personally Visualized and interpreted and Report Reviewed by me
Medical Tests (PFT, Pathology etc): Image Personally Visualized and interpreted and Report Reviewed by me
Labs: Labs Reviewed by me
Old Records: Reviewed
[2024-10-19 11:06] VITALS: BP 143/76
--- NOTE | 2024-10-19 11:53 | CM ---
Following up on patient. RN stated that he is going for a ALEJANDRO and might discharge today.
CHINMAY Flores completed IMM at 11:50AM
PLAN: Home no needs.
[2024-10-19] MEDS: HEPARIN 25000 UNITS/250 ML IV (13:03)
--- NOTE | 2024-10-19 14:09 | W.PN.HOSP.TC ---
Today's Communication/Plan
-
Assessment / Plan
Assessment / Plan
General: No Apparent Distress, Comfortable and Conversant
HEENT: NormoCephalic, Moist mucous membranes, Atraumatic
Respiratory: Clear and Non Labored Respirations
Cardiac: S1/S2 and Regular Rhythm; No Rub or Gallop
GI: Soft, Non Tender, Non Distended and Normal Bowel Sounds
Musculoskeletal: No Edema, no deformity
: NO Campbell
Neuro: Awake, Alert, Nonfocal/grossly intact
Psych: Calm and Intact Judgment/Insight
Chest Pain / Unstable Angina
- EKG reviewed and no ST segment changes
- Troponin peak 0.023
- Continue low-dose aspirin and IV heparin drip
- Cardiology following, planning left heart catheterization today 10/19
- Possible reflux symptom aggravating / compounding presentation. Trial of PPI
Bronchiectasis / Asthma
-No signs of flareup
-Continue home nebulizer regimen
-Continue theophylline
-Dr Perdue is primary selling manager at [facility].
Ulcerative Colitis
-Patient maintained on Entyvio as outpatient
-Dr Wood is primary GI
Prostate Cancer s/p Radiation
-Continue tamsulosin
Insomnia - on lunesta, patient bringing home supply
DVT proph: Heparin drip
Code Status: Full Code
Total time spent with patient care 52 minutes.
Anticipated Discharge: 24 - 48 hours
Subjective/Interval History
-
Date of Service: October 19, 2024
Patient was seen and examined at bedside this morning. Remains on IV heparin drip for unstable angina. Pending left heart catheterization today.
Objective Data
-
Labs:
Laboratory Results
10/19/24 10/19/24 10/19/24
07:08 08:07 15:40
APTT 123.0 H Pending
Sodium 138
Potassium 4.1
Chloride 109 H
Carbon Dioxide 24
BUN 12
Creatinine 0.6 L
Glucose 102 H
Calcium 9.3
Vital Signs:
Vital Signs
Temp Pulse Resp BP Pulse Ox
97.6 F 99 18 143/76 99
10/19/24 11:06 10/19/24 11:06 10/19/24 11:06 10/19/24 11:06 10/19/24 11:06
I&O
10/18/24 10/19/24 10/20/24
06:59 06:59 06:59
Intake Total 1020 / 1020 900 / 900
Balance 1020 / 1020 900 / 900
Review of Systems
-
History Source: Patient
All other systems: Reviewed and negative
Physical Exam
-
General: No Apparent Distress
--- NOTE | 2024-10-19 14:34 | PTCARENOTE ---
Assumed care of pt from previous nurse. Pt denies pain. Pt to cardiac cath, awaiting return.
--- NOTE | 2024-10-19 14:47 | ITS.CL.CATH ---
Teaching Supervisor - Catheterization
Cardiac Catheterization
Procedure Report:
CARDIAC CATHETERIZATION REPORT
Date of Procedure: 10/19/2024
Referring: Annie Guzman M.D.
Indication: Chest pressure after 27 mile bike ride, asthma/bronchiectasis, concern for ACS.
PROCEDURE:
1. Right heart catheterization.
2. Coronary angiography.
3. Left heart catheterization.
A total of 10 minutes of procedural/moderate sedation was utilized. An independent medical donation professional was present to assist with and help manage the patient's level of consciousness and physiologic status.
ACCESS:
1. 6 Israeli right radial artery using a modified Seldinger technique delete.
2. 5 Israeli right antecubital vein using a modified Seldinger technique under ultrasound guidance.
CATHETERS:
1. 5 Israeli balloon wedge.
2. 5 Israeli JL 3.5.
3. 5 Israeli JR4.
HEMODYNAMIC DATA
Weight (kg): 83.0
AO (s/d/x, mmHg): 111/70/88
LV (s/x, mmHg): 113/12
PCWP (a/v/x, mmHg):
PA (s/d/x, mmHg):
RV (s/x, mmHg): 25/10
RA (a/v/x, mmHg):
SVC SvO2 (%): 74.6
IVC SvO2 (%): Not obtained.
RA SvO2 (%): Not obtained
RV SvO2 (%): Not obtained.
PA SvO2 (%): 74.1
SaO2 (%): 94.3
Hbg (g/dL): 13.7
LUCINDA
CO (L/min): 6.46
CI (L/min/m2): 3.32
Thermodilution
CO (L/min): Not performed.
CI (L/min/m2): Not performed.
TPG (mmHg): 5
PVR (Lindsey Units): 0.77
SVR (dynes*seconds*cm^-5): 966
AVO2 Diff (Volume %): 3.76
AV gradient (x, mmHg): None.
AV area (cm2): Normal.
MV gradient (x, mmHg): Not obtained.
MV area (cm2): Not obtained.
LEFT VENTRICULOGRAPHY: Not performed.
AORTOGRAPHY: Not performed.
CORONARY ANGIOGRAPHY
Dominance: Right.
Left Main: Large size, trifurcating vessel. There is no coronary artery disease.
LAD: Large size vessel giving rise to 1 large diagonal before wrapping around the apex and supplying the distal inferior wall. There is a 30% lesion in the mid LAD.
Ramus: Medium to large size vessel which subsequently bifurcates into 2 daughter branches and supplies the lateral wall. There is no coronary artery disease.
Circumflex: Relatively small size, nondominant vessel giving rise to a small, terminal obtuse marginal. There is no coronary artery disease.
RCA: Large size, dominant vessel with a large posterolateral arcade. There is no coronary artery disease
INTERVENTIONS
None.
Closure Device: Vascular band.
Radiation dose (mGy): 360.78
DAP (cm2.Gy): 24.2858
Fluoroscopy time (minutes): 3.4
CONCLUSIONS:
1. Right dominant circulation with a 30% lesion in the mid LAD but no occlusive coronary artery disease.
2. Top normal to mildly elevated filling pressures (LVEDP = 12 mmHg, PCWP = 14 mmHg at 83.0 kg).
3. Preserved cardiac index (3.32 L/min/m�).
RECOMMENDATIONS:
1. Expectant management after cardiac catheterization via right radial/antecubital approach.
2. Limited weight bearing on the right wrist for one week.
3. Aggressive primary prevention with high-dose, high potency statin, particular given documented coronary artery calcium. Goal LDL <55.
4. OMT/GDMT as hemodynamics tolerate.
5. Evaluate for other causes of exertional chest discomfort. Consider GERD/esophageal spasm versus known underlying primary pulmonary disease.
Copy to: Annie Guzman M.D., Gill Gregorio M.D.
Hebert Freitas, , FACC, FACP
[2024-10-19 15:17] VITALS: BP 124/76
--- NOTE | 2024-10-19 16:00 | W.DCSUMMARY ---
Discharge Summary
Discharge Data
Date of Admission: 10/16/24
Date of Discharge: 10/19/24
Total time spent discharging patient (in min): 58
-
Pending Results: No
Hospital Course
Mr. Powell is a 69-year-old male with a medical history of ulcerative colitis, bronchiectasis, prostate cancer (s/p radiation), sinus surgery, and hernia repair who presented with chest pain. This chest pain had been intermittent for the past few
weeks prior to this admission and worse with exertion. CT angiography of his chest during recent ED visit was negative for PE. At the time of this admission his troponins were detectable but within normal limits. EKG showed no acute changes. His
troponin peaked at 0.023 and has since downtrended. He was started on low-dose aspirin and anticoagulation with IV heparin drip. He underwent left and right heart catheterization on 10/19 with no evidence of obstructive coronary disease or pulmonary
hypertension. It is possible that his chest discomfort is due to GI symptoms, potentially acid reflux for esophageal spasm. He has been started on acid suppression with daily pantoprazole. He will also be started on high intensity statin therapy.
At time of hospital discharge he was medically stable. He will need to follow-up closely with his primary care physician, with cardiology, with a foundry worker, and with his primary advertising intern.
Discharge Plan
-
Patient Disposition: Home (Routine Discharge)
Discharge Diagnosis/Procedures: Chest pain, cardiac catheterization
Activity Restrictions/Additional Instructions:
Mr. Powell is a 69-year-old male with a medical history of ulcerative colitis, bronchiectasis, prostate cancer (s/p radiation), sinus surgery, and hernia repair who presented with chest pain. This chest pain has been intermittent for the past few
weeks prior to this admission and is worse with exertion. CT angiography of his chest during recent ED visit was negative for PE. At the time of this admission his troponins were detectable but within normal limits. EKG showed no acute changes.
His troponin peaked at 0.023 and has since downtrended. He was started on low-dose aspirin and anticoagulation with IV heparin drip. He underwent left and right heart catheterization on 10/19 with no evidence of obstructive coronary disease or
pulmonary hypertension. It is possible that his chest discomfort is due to GI symptoms, potentially acid reflux for esophageal spasm. He has been started on acid suppression with daily pantoprazole. He will also be started on high intensity
statin therapy. At time of hospital discharge he was medically stable. He will need to follow-up closely with his primary care physician, with cardiology, with a foundry worker, and with his primary advertising intern.
Stand Alone Forms: DC Instructions- Cath/EP Lab
Referrals:
Gill Gregorio MD [Family Provider, Internal Medicine]
Georgi Guzman MD [Active, Cardiology]
Prescriptions:
New
aspirin 81 mg Tablet,Delayed Release (Dr/Ec)
81 mg PO DAILY 90 Days Qty: 90 0RF
atorvastatin 40 mg Tablet
40 mg PO QPM 90 Days Qty: 90 0RF
pantoprazole 40 mg Tablet,Delayed Release (Dr/Ec)
40 mg PO DAILY 90 Days Qty: 90 0RF
Continued
theophylline 300 MG tablet extended release 12 hr
300 mg PO BID
tamsulosin 0.4 MG capsule
0.4 mg PO BID
cholecalciferol (vitamin D3) 2,000 UNITS tablet
2,000 units PO DAILY
multivitamin with folic acid [Tab-A-Margarita] 1 TABLET tablet
1 tab PO DAILY
Combivent Respimat 1 PUFF mist
1 puff inhalation Q4HPRN PRN (Reason: sob)
cyclobenzaprine 10 MG tablet
10 mg PO DAILYPRN PRN (Reason: muscle spasms)
ipratropium-albuterol 3 ML solution for nebulization
3 ml inhalation R BID
fluticasone propionate 1 SPRAY spray,suspension
1 spray intranasal DAILY
arformoterol 15 mcg/2 mL Solution For Nebulization
2 ml INHALATION BID
Entyvio 300 mg Recon Soln
300 mg IV Q8W
polyethylene glycol 3350 [Miralax] 17 gram Powder In Packet
17 g PO BID
azithromycin [Zithromax] 250 mg Tablet
250 mg PO MOWEFR
Dulera 100-5 mcg/actuation Hfa Aerosol Inhaler
2 puff INHALATION BID PRN (Reason: when not using neb)
fexofenadine 180 mg Tablet
180 mg PO DAILY
budesonide 0.5 mg/2 mL Suspension For Nebulization
0.5 mg INHALATION BID
folic acid 1 mg Tablet
1 mg PO DAILY
eszopiclone [Lunesta] 2 mg Tablet
2 mg PO HS
sodium chloride 7 % Solution For Nebulization
4 ml INHALATION BID
lidocaine 5 % Ointment
1 applic TOPICAL BID PRN (Reason: Pain)
Yupelri 175 mcg/3 mL Solution For Nebulization
175 mcg INHALATION DAILY
fluticasone propionate 220 mcg/actuation HFA aerosol inhaler
2 puff INHALATION Q12H
hydrocodone-homatropine [Hycodan] 5-1.5 mg/5 mL (5 mL) Solution
5 ml PO DAILYPRN PRN (Reason: Cough)
fluorouracil 0.5 % Cream
1 applic TOPICAL DAILY
Verrustat liquid
1 ml topical 1XD
Discharge Orders:
Discharge Patient (As Directed); Ordered 10/19/24
Ordered By: Eris Garrett
Discharge Date and Time
Print Language: YI
[2024-10-19] MEDS: LIPITOR 40 MG PO (17:10)
[2024-10-19 19:20] VITALS: BP 150/87
--- NOTE | 2024-10-19 19:40 | PTCARENOTE ---
Pt a-band removed from wrist, no bleeding noted. right brachial site dressing cdi. Pt iv removed, tele removed, paperwork reviewed and copy provided. Pt escorted to car with waiting via w/c without issue.
[2024-10-19] MEDS: PULMICORT INH (19:43)
[2024-10-19] MEDS: DUONEB INH (19:43)
[2024-10-19] MEDS: NON-FORMULARY ITEM INH (19:43)
== END 2024-10-19 19:50 | disposition home or self-care (01) | DRG 287 ==
LOC: 4 WEST ACU 22:29
PROVIDERS: Hospitalist; Internal Medicine Cardiovascular Disease; Physician Assistant Medical; ADMITTING PHYSICIAN Hospitalist; ATTENDING PHYSICIAN Internal Medicine; CONSULT PHYSICIAN Internal Medicine Cardiovascular Disease; EMERGENCY PHYSICIAN Student in an Organized Health Care Education/Training Program; FAMILY PHYSICIAN Internal Medicine
PROC: 4A023N8 Measurement of Cardiac Sampling and Pressure, Bilateral, Percutaneous Approach (ICD-10-PCS; 2024-10-19)
PROC: B2111ZZ Fluoroscopy of Multiple Coronary Arteries using Low Osmolar Contrast (ICD-10-PCS; 2024-10-19)
DX: R07.89 Other chest pain (principal); K51.90 Ulcerative colitis, unspecified, without complications; J45.909 Unspecified asthma, uncomplicated; J47.9 Bronchiectasis, uncomplicated; C61 Malignant neoplasm of prostate; I10 Essential (primary) hypertension; N40.0 Benign prostatic hyperplasia without lower urinary tract symptoms; G47.00 Insomnia, unspecified; R00.0 Tachycardia, unspecified; Z79.51 Long term (current) use of inhaled steroids; Z79.899 Other long term (current) drug therapy; Z87.891 Personal history of nicotine dependence; Z92.3 Personal history of irradiation
CPT/HCPCS: 80048; 80053; 80061; 83036; 84484; 85025; 85027; 85730; 93005; 93460; 94640; 96374; 99291; C1894; Q9967

== ENCOUNTER → 2024-11-16 09:39 | Outpatient (REF) | payer MEDICARE, OTHER, SELFPAY | LOC: RAD 09:39 | PROVIDERS: ATTENDING PHYSICIAN Internal Medicine; FAMILY PHYSICIAN Internal Medicine | DX: R07.89 Other chest pain (principal) | CPT/HCPCS: 74221 ==

== ENCOUNTER → 2024-11-27 12:54 | Outpatient (REF) | payer MEDICARE, OTHER, SELFPAY | LOC: HWRCS 12:54 | PROVIDERS: ATTENDING PHYSICIAN Nurse Practitioner; FAMILY PHYSICIAN Internal Medicine | DX: R07.89 Other chest pain (principal); R00.2 Palpitations | CPT/HCPCS: 93306 ==